=== PATIENT | male | born 1965 | race Caucasian/White ===

== ENCOUNTER 2016-05-29 11:23 | Emergency (ER) | payer SELFPAY ==
[~2016-05-29] VITALS: Ht 177.8 cm; Wt 80.0 kg
[2016-05-29 11:26] VITALS: BP 136/80; PULSE 78; RESP 20; TEMP 97.8; O2SAT 95
[2016-05-29] MEDS ORDERED: PROPARACAINE HCL 0.5% OPHT SOLN 15 ML BTL EACH EYE ONE (11:45)
--- NOTE | 2016-05-29 11:58 | PD ---
HPI Chief Complaint: Eye Problems/Injury Time Seen by Provider: 11:40 Travel History International Travel<30 days: No Contact w/Intl Traveler<30days: No Traveled to known affect area: No History of Present Illness HPI This is a 51-year-old male who presents for evaluation of left eye irritation and redness. He reports that 6 days ago and 5 days ago he was polishing the wheels on his motorcycle and he was not wearing any sort of protective eyewear. He doesn't recall anything specifically getting into his left eye but he does recall some splatter onto his face. He reports that that evening he began developing some left eye redness and irritation and foreign body sensation. He reports that he flew [place] the next day and he went to an emergency room and was diagnosed with corneal abrasion. He was prescribed ofloxacin ophthalmic solution which she has been using as prescribed. He reports persistent left eye redness and irritation foreign body sensation as well as photophobia. He has direct photophobia as well as mild consensual photophobia. Denies any true blurred vision. He does not wear contacts. His last tetanus vaccination was within 5 years. He has no other complaints. [facility] Social History Alcohol Use: Yes Tobacco Use: Yes Allergies-Medications (Allergen,Severity, Reaction): Coded Allergies: Phenobarbital (Verified Allergy, Unknown, 05/29/16) Physical Exam Narrative GENERAL: Well developed well-nourished male in no acute distress SKIN: Warm and dry. HEAD: Atraumatic. Normocephalic. EYES: Pupils equal and round reactive to light extraocular muscles are intact. There is left eye conjunctival injection as well as mild ciliary flush. The upper eyelid was everted and there is no evidence of retained foreign body. Wood's lamp was performed and there is no area of increased corneal uptake, negative Vicky's. Slit lamp was performed and there is no evidence of hypopyon , hyphema, no obvious cell or flare in the anterior chamber. No obvious foreign bodies. Intraocular pressure was 10 both times. ENT: No nasal bleeding or discharge. Mucous membranes pink and moist. NECK: Trachea midline. No JVD. No lymphadenopathy Data Data Last Documented VS Vital Signs Date Time Temp Pulse Resp B/P Pulse Ox O2 Delivery O2 Flow Rate FiO2 05/29/16 11:26 97.8 78 20 136/80 95 Room Air Orders Proparacaine 0.5% Opth Soln (Alcaine 0.5 (05/29/16 11:45) MDM Medical Decision Making Medical Screen Exam Complete: Yes Emergency Medical Condition: Yes Medical Record Reviewed: Yes Differential Diagnosis 51-year-old male with painful left eye, photophobia, foreign body sensation. Differential diagnosis includes corneal abrasion, retained foreign body, conjunctivitis, iritis, endophthalmitis, acute glaucoma, orbital cellulitis Narrative Course On examination there is no evidence of retained foreign body or corneal abrasion. I'm concerned because his symptoms have been worsening despite the use of topical antibiotic ointment. Ophthalmology will be consulted. 1215: I discussed with on-call principal automation engineer Dr. Shea he would be happy to see the patient first thing in the morning if he calls at 8 AM. He does have a plane to catch in [place] at 4 PM so he does plan on seeing her first thing in the morning. He is stable for discharge. Diagnosis Primary Impression: Left eye pain Referrals: Ofelia Shea MD Additional Instructions: As discussed, follow-up with Dr. Shea tomorrow morning, call her office at 8 AM to make the appointment. Return for any emergent medical conditions. Med/Other Pt SpecificInfo: No Change to Meds Disposition: 01 DISCHARGE HOME Condition: Stable John Sage May 29, 2016 11:58
[2016-05-30] MEDS ORDERED: METF1000 PO (09:01)
[2016-05-30] MEDS ORDERED: OFLO0.3D5 LEFT EYE (09:01)
[2016-05-30] MEDS ORDERED: NOVONP2 SQ (09:01)
[2016-05-30] MEDS ORDERED: PARO1TAB72 PO (09:01)
[2016-05-30] MEDS ORDERED: PRED1SUS6 LEFT EYE (09:40)
== END 2016-05-29 12:40 | disposition home or self-care (01) ==
LOC: NEPB 11:23
DX: H57.12 Ocular pain, left eye (principal); Z72.0 Tobacco use
CPT/HCPCS: 99283